=== PATIENT | female | born 1975 | race Caucasian/White ===

== ENCOUNTER 2017-12-27 18:26 | Emergency (ER) | payer OTHER ==
[~2017-12-27] VITALS: Ht 162.6 cm; Wt 72.6 kg
[2017-12-27 18:53] VITALS: BP 140/91
[2017-12-27] MEDS ORDERED: HYDROcodone/APAP 10/325 MG 1 TAB TAB PO STA (21:07)
[2017-12-27] MEDS ORDERED: CYCLOBENZAPRINE 10 MG TAB PO ONE (21:10)
[2017-12-27] MEDS ORDERED: IBUPROFEN 800 MG TAB PO ONE (21:10)
[2017-12-27 21:51] VITALS: BP 149/92
== END 2017-12-27 21:50 | disposition home or self-care (01) ==
LOC: MED 18:26
DX: S16.1XXA Strain of muscle, fascia and tendon at neck level, initial encounter (principal); K21.9 Gastro-esophageal reflux disease without esophagitis; R03.0 Elevated blood-pressure reading, without diagnosis of hypertension; X58.XXXA Exposure to other specified factors, initial encounter; Y93.89 Activity, other specified; Y92.89 Other specified places as the place of occurrence of the external cause; Y99.8 Other external cause status
CPT/HCPCS: 81002; 81025; 99284

== ENCOUNTER 2018-02-01 20:20 | Emergency (ER) | payer OTHER ==
[~2018-02-01] VITALS: Ht 165.1 cm; Wt 70.3 kg
[2018-02-01 20:30] VITALS: BP 141/69
--- NOTE | 2018-02-01 20:33 | NUR ---
PT.AMBULATED TO [facility]
--- NOTE | 2018-02-01 20:35 | NUR ---
PATIENT IS A 42 Y/O FEMALE WHO PRESENTS TO THE ED C/O R KNEE PAIN. PT STATES THAT SHE WAS SEEN AT CLINIC PRESCRIBED MEDS WITH NO RELIEF. PT REPORTS 8/10 ACHING R KNEE PAIN THAT DOES NOT RADIATE. LIMITED ROM, NO OBVIOUS DEFORMITY, NO BLEEDING. PT DENIES CP, SOB, N/V/D. PT AAOX4, RR EVEN/UNLABORED. PT REPOSITIONED FOR COMFORT, BED IN LOWEST POSITION. ER MD DR. C[place] NOTIFIED. WILL CONTINUE TO MONITOR.
[2018-02-01] MEDS ORDERED: oxyCODONE/APAP 5/325 MG 1 TAB TAB PO ONE (21:15)
[2018-02-01 22:53] LABS: BASOPHILS # (AUTO) 0.1 K/uL (0.00-0.22); BASOPHILS % (AUTO) 1.7 % (0.0-2.0); EOSINOPHILS # (AUTO) 0.1 K/uL (0-0.4); EOSINOPHILS % (AUTO) 1.1 % (0.0-4.0); HEMATOCRIT 39.4 % (36-48); HEMOGLOBIN 13.2 g/dL (12.0-16.0); LYMPHOCYTES # (AUTO) 0.5 K/uL (2.5-16.5); MEAN CORPUSCULAR HEMOGLOBIN 31 pg (27-31); MEAN CORPUSCULAR HGB CONC 33 g/dL (33-37); MEAN CORPUSCULAR VOLUME 93.4 fL (80-94); MONOCYTES # (AUTO) 0.4 K/uL (0.8-1.0); MONOCYTES % (AUTO) 4.6 % (1.7-9.3); NEUTROPHILS # (AUTO) 7.3 K/uL (1.8-7.7); NEUTROPHILS % (AUTO) 86.6 % (42.2-75.2); PLATELET COUNT (AUTO) 246 K/uL (140-450); RED BLOOD CELL COUNT(AUTO) 4.22 MIL/uL (4.20-5.40); RED CELL DISTRIBUTION WIDTH 12.8 % (11.6-13.7); WHITE BLOOD COUNT (AUTO) 8.4 K/uL (4.8-10.8)
--- NOTE | 2018-02-02 | NUR ---
PATIENT RESTING AT THIS TIME.
[2018-02-02] MEDS ORDERED: INDOMETHACIN 25 MG CAP PO ONE (00:25)
[2018-02-02 01:10] VITALS: BP 147/82
--- NOTE | 2018-02-02 01:10 | NUR ---
Patient discharged with v/s stable. Written and verbal after care instructions given and explained. Patient alert, oriented and verbalized understanding of instructions. Ambulatory with steady gait. All questions addressed prior to discharge. ID band removed. Patient advised to follow up with PMD. Rx of MEDROL 4MG AND NORCO 5MG-325MG given. Patient educated on indication of medication including possible reaction and side effects. Opportunity to ask questions provided and answered.
== END 2018-02-02 01:10 | disposition home or self-care (01) ==
LOC: MED 20:20
DX: M25.561 Pain in right knee (principal); K21.9 Gastro-esophageal reflux disease without esophagitis; F17.210 Nicotine dependence, cigarettes, uncomplicated; Z90.710 Acquired absence of both cervix and uterus
CPT/HCPCS: 36415; 73562; 84550; 85025; 85379; 93971; 99285; Q0092